=== PATIENT | female | born 2000 | race Caucasian/White ===

== ENCOUNTER 2022-11-28 10:08 | Outpatient (CLI) | payer OTHER, SELFPAY ==
[2022-11-28 10:29] VITALS: BP 108/65; PULSE 63; TEMP 36.2
[2022-11-28 10:46] VITALS: BMI 24.3
[2022-11-28 11:10] LABS: Bacteria 0 SEEN /hpf (None Seen); Mucous, Urine 0 SEEN /hpf (<or=2+); Red Blood Cells-Urine 0 SEEN /hpf (0-5); White Blood Cells 0 SEEN /hpf (0-5)
[2022-11-28 11:12] LABS: Color, Urine Yellow (Yellow); Glucose, Dipstick Normal (Normal); Ketone-Dipstick Negative (Negative); Leukocyte Esterase-Dipstick 25 /ul (Negative); Nitrite-Dipstick Negative (Negative); Occult Blood-Urine Negative /ul (Negative); Protein-Dipstick Negative (Negative); Urine Bilirubin Dipstick Negative (Negative); Urine Clarity Clear (Clear); Urine Urobilinogen Normal (Normal)
[2022-11-28 11:42] LABS: Squamous Epithelial Cells - UA 0-5 SEEN /hpf (5-10)
== END 2022-11-28 11:05 | disposition home or self-care (01) ==
LOC: WPPAT 10:23 → WP 10:25
PROVIDERS: Visit Provider Obstetrics & Gynecology
DX: Z00.00 Encounter for general adult medical examination without abnormal findings (principal)
CPT/HCPCS: 59050; 81001; 99221; G0378

== ENCOUNTER 2022-11-28 11:13 | Emergency (ER) | payer MEDICAID, SELFPAY ==
[2022-11-28 11:14] VITALS: BP 107/68; PULSE 65; RESP 18; TEMP 35.7; O2SAT 100; BMI 24.3
--- NOTE | 2022-11-28 11:28 | EDS_ITS ---
HPI HPI - GI History of Present Illness Chief Complaint: Abd Pain Detail of Chief Complaint: Burning abdominal pain Informant: patient Narrative Narrative: Patient presents to the emergency department complaint of burning abdominal pain that started early this morning. Patient states it feels like severe heartburn. She has not taken anything for it. She was initially seen in OB and was sent down to the ER once it was assessed that patient was not in labor. Patient has had some nausea but no vomiting. She denies fever chills or sweats. She denies vaginal bleeding. She denies dysuria. PFSH PFSH Home Medications vits no.130-ferrous fum 27 mg iron-folic acid 800 mcg tablet ( Vitamin) 1 tab PO DAILY 11/28/22 [History Last Taken 11/28/22 08:00 1 TAB] Allergy/AdvReac Type Severity Reaction Status Date / Time No Known Allergies Allergy Verified 11/28/22 11:14 Social History Smoking Status: Former smoker ROS ROS ED Review of Systems ROS Unobtainable: other Constitutional Constitutional ED: Reports lethargy; Denies chills, fever(s), sweats or weight loss Eyes Eyes: Denies blurry vision, change in vision or diplopia ENT ENT ED: Denies rhinorrhea or sore throat Cardiovascular Cardiovascular: Denies chest pain, orthopnea or racing heartbeat Respiratory/Chest Respiratory/Chest: Denies cough, dyspnea, dyspnea on exertion, orthopnea or sputum Gastrointestinal Gastrointestinal: Reports abdominal pain; Denies diarrhea, nausea or vomiting Genitourinary Genitourinary ED: Denies dysuria, hematuria or urinary frequency Musculoskeletal Musculoskeletal: Denies arthralgias, back pain, myalgias or neck pain Integumentary Denies abscess, Abrasions or rash Neurologic Neurologic: Denies headache(s) or weakness Psychiatric Psychiatric: Denies anxiety, depression or suicidal thoughts Endocrine Endocrinology: Denies polydipsia, polyphagia or polyuria Hematologic/Lymphatic Hematologic/Lymphatic: Denies easy bleeding, easy bruising or lymphadenopathy Allergic/Immunologic Allergic/Immunologic ED: Denies mouth swelling, tongue swelling or urticaria EXAM Physical Exam Const Vital Signs: 11/28/22 11:14 Temperature 96.2 F L Temperature Source Temporal Pulse Rate 65 Respiratory Rate 18 Blood Pressure 107/68 Blood Pressure Mean 81 Pulse Ox 100 Oxygen Delivery Method Room Air Positive well nourished and well developed General Appearance ED: well developed and NAD HEENT Reports TM's clear and moist mucous membranes normocephalic and atraumatic; Negative for trauma or tenderness Tympanic Membrane ED: Yes TM's clear Eyes PERRL and EOMs intact bilaterally General Eye ED: Negative for pale conjunctiva or scleral icterus Neck no lymphadenopathy, supple and no JVD General: Negative for tenderness Chest Wall inspection of chest normal and palpation of chest normal Chest: Negative for tenderness Resp normal respiratory effort and clear to auscultation bilaterally Effort and Inspection: Negative for respiratory distress or pain with movement Auscultation: Negative for rhonchi, wheezes or diminished lung sounds Cardio regular rate, regular rhythm, S1 normal heart sound, S2 normal heart sound and no murmurs Peripheral Pulses: pulses 2+ throughout GI normal to inspection, nondistended, normoactive bowel sounds, soft to palpation, non-distended and no masses GI Narrative: Mild tenderness over the right upper quadrant and epigastric region. There is no rebound, rigidity, or peritoneal signs. No mass palpated. Back/Spine no CVA tenderness and no thoracic nor lumbar tenderness Extremity normal to inspection General Extremety ED: Negative for edema General Extremity: Negative for edema Neuro oriented x3, CN's II-XII intact bilaterally, no sensory deficits noted and gait normal Sensorium / Orientation: awake, alert, oriented to person, oriented to place and oriented to time Motor Exam: strength 5/5 throughout and strength abnormal Psych mental status grossly normal Skin no rashes or lesions noted and no wounds MDM MDM MDM Narrative Medical decision making narrative: Patient presents with a burning upper abdomen pain in . She was seen by OB initially before being seen in the emergency department. Patient states that she has had heartburn in the past but did not take anything for it this time around. Patient does state that she does eat a lot of spicy food and puts Tabasco on everything. Patient denies any lower abdomen pain. She denies urinary symptoms. In the differential would be GERD versus gallbladder disease versus pancreatitis. Her abdominal exam is relatively benign. IV line established. CBC with differential white count 7.1 with hemoglobin of 10 and platelet count of 199. Chemistries unremarkable. LFTs were normal. Lipase was normal. Urinalysis sent by OB was negative for infection. I did give patient a GI cocktail and she did have some improvement in her discomfort and currently rates the burning may be a 4 out of 10. Patient will be discharged to home and will be given referral to [employer] on-call for no doc. She would like to just try to stick to Tums for the time being and manage her diet as she is advised to avoid spicy greasy foods as well as acidic foods. Patient vies return if worsening pain, fever, vomiting, or condition worsening way. I do not feel any imaging is indicated at this time as she has normal labs and a benign exam. Lab Data Attestation: I reviewed the patient's lab results. Labs: Laboratory Results - last 24 hr 11/28/22 11:30 WBC 7.1 RBC 3.43 L Hgb 10.2 L Hct 30.3 L MCV 88.3 MCH 29.7 MCHC 33.7 RDW Std Deviation 44.6 H RDW Coeff of Geoff 13.8 Plt Count 199 MPV 10.6 Immature Gran % (Auto) 0.300 Neut % (Auto) 74.3 H Lymph % (Auto) 18.3 L [place] % (Auto) 5.2 Eos % (Auto) 1.5 Baso % (Auto) 0.4 Absolute Neuts (auto) 5.3 Absolute Lymphs (auto) 1.30 Nucleated RBC % 0 Sodium 141 Potassium 4.3 Chloride 107 Carbon Dioxide 25.0 Anion Gap 9 BUN 9 Creatinine 0.43 L Estim Creat Clear Calc 196.18 Est GFR (MDRD) Af Amer 230 Est GFR (MDRD) Non-Af 190 BUN/Creatinine Ratio 20.8 H Glucose 84 Calcium 8.3 L Total Bilirubin 0.30 AST 11 L ALT 19 Alkaline Phosphatase 51 Total Protein 6.1 L Albumin 2.8 L Globulin 3.3 Albumin/Globulin Ratio 0.8 L Lipase 15 Discharge Plan Triage Chief Complaint: Abd Pain ED Provider: Huang Boyd Dx/Rx/DC Orders Clinical Impression: GERD (gastroesophageal reflux disease) Instructions: ED GERD (Adult) Prescriptions: No Action Vitamin 27 mg iron- 800 mcg tablet 1 tab PO DAILY Primary Care Provider: Care Physician,Razia Primary Referrals: Augusto Mcfarlane MD [Med Staff - Active Staff] - 5-7 Days NOT,DEFINED [Non-Staff] - Disposition Disposition: Home, Self Care Discharge Date/Time: 11/28/22 12:31
[2022-11-28] MEDS: Mag Hydrox/Al Hydrox/Simeth 30 ML UDC PO (11:34)
[2022-11-28 11:45] LABS: Absolute Neutrophil Count 5.3 X10^3/uL (2.0-7.7); Basophil# 0.03 X10^3/uL; Basophil% 0.4 % (0-1); Eosinophil# 0.11 X10^3/uL; Eosinophils% 1.5 % (0-5); Hematocrit 30.3 % (37-47); Hemoglobin 10.2 g/dL (12.0-15.0); Lymphocyte % 18.3 % (19-41); Mean Corp Hgb Conc 33.7 g/dL (32-36); Mean Corpuscular Hgb 29.7 pg (27.0-32.0); Mean Corpuscular Volume 88.3 fL (81-99); Mean Platelet Vol. 10.6 fl (6.2-12.0); Monocyte# 0.37 X10^3/uL; Monocyte% 5.2 % (0-10); NRBC Flagged by Analyzer 0 % (0-5); Neutrophil # 5.27 X10^3/uL (2.7-7.7); Neutrophil % 74.3 % (47-70); Platelet Count 199 K/mm3 (150-450); RBC Distribution Width CV 13.8 % (11.6-14.6); RBC Distribution Width SD 44.6 fl (35.1-43.9); Red Blood Count 3.43 M/mm3 (4.2-5.4); White Blood Count 7.1 K/mm3 (4.4-11.0)
[2022-11-28 11:55] LABS: ALB/GLOB Ratio 0.8 RATIO (0.9-2.4); AST(SGOT) 11 U/L (15-37); Alanine Aminotransfer ALT/SGPT 19 U/L (13-56); Albumin, Serum 2.8 g/dL (3.2-5.0); Alkaline Phosphatase 51 U/L (45-117); Anion Gap 9 (5-15); BUN 9 mg/dL (7-18); BUN/Creat Ratio 20.8 RATIO (10-20); Calcium,Total 8.3 mg/dL (8.5-10.1); Chloride 107 mmol/L (98-107); Creatinine, Serum 0.43 mg/dL (0.55-1.02); EST Glomerular Filtration Rate 190 mL/min (>60); Est Glom Filt Rate - Afr Amer 230 mL/min (>60); Estimated Creatinine Clearance 196.18 ml/min; Globulin 3.3 g/dL (2.2-4.2); Glucose 84 mg/dL (74-106); Lipase 15 U/L (13-75); Potassium 4.3 mmol/L (3.5-5.1); Protein, Total 6.1 g/dL (6.4-8.2); Sodium Level 141 mmol/L (136-145)
== END 2022-11-28 12:31 | disposition home or self-care (01) ==
PROVIDERS: Emergency Provider Emergency Medicine; Visit Provider Emergency Medicine
DX: O99.619 Diseases of the digestive system complicating pregnancy, unspecified trimester (principal); K21.9 Gastro-esophageal reflux disease without esophagitis; Z87.891 Personal history of nicotine dependence
CPT/HCPCS: 59050; 80053; 81001; 83690; 85025; 99221; 99282; G0378

== ENCOUNTER 2022-12-30 13:40 | Outpatient (CLI) | payer OTHER, SELFPAY ==
[2022-12-30 13:52] VITALS: TEMP 36.6
[2022-12-30 13:54] VITALS: BP 116/68; PULSE 90
[2022-12-30 14:23] VITALS: BMI 26.9
[2022-12-30 15:28] LABS: Absolute Lymphocyte Count 1.63 X10^3/uL (0.83-4.51); Absolute Neutrophil Count 6.9 X10^3/uL (2.0-7.7); Basophil# 0.06 X10^3/uL; Basophil% 0.6 % (0-1); Eosinophil# 0.11 X10^3/uL; Eosinophils% 1.2 % (0-5); Hematocrit 30.1 % (37-47); Hemoglobin 9.6 g/dL (12.0-15.0); Lymphocyte # 1.63 X10^3/ul (0.83-4.51); Lymphocyte % 17.6 % (19-41); Mean Corp Hgb Conc 31.9 g/dL (32-36); Mean Corpuscular Hgb 28.1 pg (27.0-32.0); Mean Platelet Vol. 10.6 fl (6.2-12.0); Monocyte# 0.46 X10^3/uL; NRBC Flagged by Analyzer 0 % (0-5); Neutrophil # 6.93 X10^3/uL (2.7-7.7); Neutrophil % 74.8 % (47-70); Platelet Count 264 K/mm3 (150-450); RBC Distribution Width SD 41.7 fl (35.1-43.9); Red Blood Count 3.42 M/mm3 (4.2-5.4); White Blood Count 9.3 K/mm3 (4.4-11.0)
[2022-12-30 15:37] VITALS: BP 121/57; PULSE 77
[2022-12-30] MEDS: Lactated Ringers 1,000 ML 999 ML IV (15:41)
[2022-12-30] MEDS: Betamethasone/Betamethasone 30 MG/5 ML Vial 12 MG IM (15:42)
[2022-12-30 15:50] LABS: Fibrinogen 369 mg/dl (203-444)
[2022-12-30] MEDS: Lactated Ringers 1,000 ML 150 ML IV (16:23)
--- NOTE | 2022-12-30 16:53 | OB.TRI.NOTE ---
HPI - General HPI Narrative TIKI ZAVALETA, is a 22 F who presents as patient of [facility] presents with bleeding x 2 at 28w6d, fell at work hit her side and has had cramping since, cervix closed. no clots but egg sized blood on her pad. she has felt good fm no regular ctx. discussed with MFM they recommend transport and steroids. cbc and fibrinogen done. PFSH PFSH Home Medications vits no.130-ferrous fum 27 mg iron-folic acid 800 mcg tablet ( Vitamin) 1 tab PO DAILY 11/28/22 [History Last Taken 11/28/22 08:00 1 TAB] Allergy/AdvReac Type Severity Reaction Status Date / Time No Known Allergies Allergy Verified 12/30/22 14:44 Social History Smoking Status: Former smoker ROS Constitutional Constitutional: Reports systems reviewed and no addt'l complaints, except as documented and as per HPI ENT HEENT: Reports systems reviewed and no addt'l complaints, except as documented Cardiovascular Cardiovascular: Reports systems reviewed and no addt'l complaints, except as documented Respiratory/Chest Respiratory/Chest: Reports systems reviewed and no addt'l complaints, except as documented Gastrointestinal Gastrointestinal: Reports as per HPI Genitourinary Genitourinary: Reports as per HPI Musculoskeletal Musculoskeletal: Reports systems reviewed and no addt'l complaints, except as documented Integumentary Integumentary: Reports systems reviewed and no addt'l complaints, except as documented Neurologic Neurologic: Reports systems reviewed and no addt'l complaints, except as documented Physical Exam Const alert, oriented x3 and no apparent distress HEENT Head and Scalp: normocephalic and atraumatic Neck full ROM and no lymphadenopathy Chest inspection of chest normal Resp normal respiratory effort GI GI Narrative: gravid, abdomen nontender, AGA Manual OB Exam: dilated, effaced and station NST FHR Rate Baby A Baseline: 140 Variability:: Moderate Accelerations:: 15 x 15 Decelerations:: None NST Reactive:: Yes FHR Category:: Category I Uterine Activity:: no regular Assessment & Plan (1) Vaginal bleeding during : COMMENT: [facility] MFM patient, seen 12/30 given celestone, transported (2) heart defect: PLAN: Plan cbc fibrinogen celestone given, reviewed with Dr Liz, transport to [facility] for monitoring Charges/Coding Multi Select Codes Visit Charges Office Visit/Consults: 63538 OV L3 New Urinary/Genital Urinary/Genital CPT Codes: 69858-42 non-stress test Interp
== END 2022-12-30 16:50 | disposition short-term general hospital (02) ==
LOC: WPOUT 13:46 → WP 13:47
PROVIDERS: Referring Provider Obstetrics & Gynecology; Visit Provider Obstetrics & Gynecology
DX: O46.93 Antepartum hemorrhage, unspecified, third trimester (principal); O36.8330 Maternal care for abnormalities of the fetal heart rate or rhythm, third trimester, not applicable or unspecified; Z3A.28 28 weeks gestation of pregnancy; Z87.891 Personal history of nicotine dependence
CPT/HCPCS: 96372; 96360; 36415; 59025; 59050; 85025; 85384; 99221; J7120; G0378; J0702

== ENCOUNTER 2023-03-01 20:03 | Outpatient (CLI) | payer MEDICAID, SELFPAY ==
--- OUTSIDE RECORDS SUMMARY | 2023-03-01 20:06 | XMS RPT_ITS | CCD ---
Author Name Unknown Address [address] [place] [address] Organization [facility] Care Team Providers Care [employer] Name Role Phone Unavailable Primary Care Provider UnavailGeneva Weaver Primary Care Provider Unavailable Primary Care Provider JAVON Page Attending Unavailable JAVON LAKHANI Admitting Unavailable REFERRED, SELF Referring Unavailable NO PRIMARY CARE, Primary Care Unavailable SOM ABBOTT Attending Unavailable REFERRED, SELF Referring Unavailable ESVIN CUELLAR Attending Unavailable JOSHUA POPENIFER Elkin Primary Care Unavailable NIKO GENEVA L Referring Unavailable NIKOJOSHUAGENEVA L Primary Care Unavailable GENEVA POPE L Attending Unavailable REFERRED, SELF Referring Unavailable NIKO, GENEVA L Primary Care Unavailable NIKO GENEVA L Attending Unavailable NIKO, GENEVA L Referring Unavailable NIKO, GENEVA L Primary Care Unavailable NIRMALA TERESA Attending Unavailable Medications Current Medications Medication Drug Class(es) Dates Sig (Normalized) Sig (Original) MV-Min-Fe Fum-FA-DHA ( 1 PO) (1 source) MV-Min- Fe Fum-FA-DHA ( 1 PO) Take by mouth. 0 Active Vit-Fe Fumarate-FA ( VITAMINS) 28-0.8 MG TABS (1 source) Start: 12-29-2022 End: 01-28-2023 take 1 tablet by mouth once daily Vit-Fe Fumarate-FA ( VITAMINS) 28-0.8 MG TABS Take 1 Tablet by mouth daily for 30 days 30 Tablet 11 12/29/2022 01/28/2023 Active Completed/Discontinued Medications Medication Drug Class(es) Dates Sig (Normalized) Sig (Original) acetaminophen 325 mg oral tablet (1 source) Start: 12-30-2022 End: 12-31-2022 take 1 tablet by mouth every four hours as needed for pain acetaminophen (Tylenol) tablet 650 mg betamethasone 3 mg/ml / betamethasone acetate 3 mg/ml injectable suspension (1 source) Corticosteroid Start: 12-31-2022 End: 12-31-2022 betamethasone acetate-betamethaso ne sodium phosphate (Celestone) injection 12 mg ferrous sulfate 325 mg oral tablet (2 sources) Start: 12-30-2022 End: 12-31-2022 ferrous sulfate tablet 325 mg Problems Problem Classification Problem Date Documented Da te Episodic/Chronic Other complications of (2 sources) High risk ; Translations: [Supervision of other high risk pregnancies, third trimester] Onset: 12-29-2022 12-29-2022 Episodic Other complications of (1 source) Late entry into care; Translations: [Supervision of with insufficient care, unspecified trimester] Onset: 12-29-2022 12-29-2022 Episodic Other female genital disorders (2 sources) Vaginal bleeding; Translations: [Abnormal uterine and vaginal bleeding, unspecified] Onset: 12-30-2022 12-30-2022 Chronic Other female genital disorders (2 sources) Abnormal uterine and vaginal bleeding, unspecified; Translations: [Abnormal uterine and vaginal bleeding, unspecified] Onset: 12-30-2022 Chronic Other and delivery including normal (1 source) Normal ; Translations: [Encounter for supervision of other normal , second trimester] Episodic Results Test Name Value Interpretation Reference Range Facil ity Vital Signs Date Time Vital Sign Value Performing Clinician Lyubov valadez 12-31-2022 12:04-0500 Body temperature 97.81 [degF] Javon Lakhani DO Work Phone: [facility] 12-31-2022 12:04-0500 Diastolic blood pressure 73 mm[Hg] Javon Lesvia DO Work Phone: [facility] 12-31-2022 12:04-0500 Heart rate 99 /min Javon Lesvia DO Work Phone: [facility] 12-31-2022 12:04-0500 Respiratory rate 16 /min Javon Lesvia [place] Work Phone: [facility] 12-31-2022 12:04-0500 SaO2% (BldA) [Mass fraction] 98 % Javon Lakhani DO Work Phone: [facility] 12-31-2022 12:04-0500 Systolic blood pressure 122 mm[Hg] Javon Lakhani DO Work Phone: [facility] 12-30-2022 18:17-0500 Body height 167.6 cm Javon Lakhani DO Work Phone: [facility] 12-30-2022 18:17-0500 Body mass index (BMI) [Ratio] 26.79 kg/m2 Javon Lakhani DO Work Phone: [facility] 12-30-2022 18:17-0500 Body weight 75.3 kg Javon Lakhani DO Work Phone: [facility] Encounters Encounter Date Encounter Type Care Provider Facility Start: 01-10-2023 End: 01-10-2023 ambulatory [facility] Start: 12-30-2022 End: 12-31-2022 Evaluation and management of inpatient JAVNO LAKHANI [facility] Start: 12-30-2022 End: 12-31-2022 Evaluation and management of inpatient Javon Lakhani DO Work Phone: [facility] Start: 12-29-2022 End: 12-30-2022 ambulatory [facility] Start: 12-29-2022 End: 12-29-2022 ambulatory SELF REFERRED [facility] Start: 12-29-2022 End: 12-29-2022 Subsequent hospital visit by physician Geneva Pope [employer] Work Phone: [facility] Procedures Date Procedure Procedure Detail Performing Clinician Start: 12-31-2022 Iadna chlamydia trachomatis amplified probe tq Catia Vo DO Work Phone: Start: 12-31-2022 Us preg uterus real time w/image dcmtn transvag Lissette Cruz DO Work Phone: Start: 11-16-2023 Antibody screen JAVON LAKHANI Plan of Treatment Date Care Activity Detail Author Start: 2058 RSV Immunization age d 60 or older (1 - 1-dose 60+ series) RSV Immunization aged 60 or older (1 - 1-dose 60+ series) [facility] Start: 2048 Zoster Vaccines (1 of 2) Zoster Vacc anay (1 of 2) [facility] Start: 02-02-2023 End: 02-02-2023 Patient encounter procedure 02/02/2023 11:30 AM EST Office Visit [facility] [address] [place], [place] [id number] Esvin Cuellar MD [address] [facility] [address] [place], [place] [id number] [phone] Josué Vázquez DO [address] [facility] [address] [place], [place] [id number] [facility] Start: 01-24-2023 End: 01-24-2023 Patient encounter procedure 01/24/2023 1:30 PM EST Office Visit [facility] [address], [address] [address] Nirmala Teresa [place] [address] [facility] Start: 01-24-2023 End: 01-24-2023 Professional / ancillary services management 01/24/2023 1:00 PM EST Ancillary Procedure Visit [facility] [address] [place] [address] [facility] Start: 01-10-2023 End: 01-10-2023 Patient encounter procedure 01/10/2023 10:00 AM EST Office Visit [facility] [address], [address] [place] [address] Nirmala Teresa [place] [address] [facility] Start: 10-15-2022 FLU (#1) FLU (#1) [facility] Start: 2019 Microscopic observat ion [Identifier] in Cervix by Cyto stain Pap Smear [facility] Start: 2019 Screening for malign ant neoplasm of cervix Pap Smear [facility] Start: 2017 DTaP/Tdap/Td Vaccine s (1 - Tdap) DTaP/Tdap/Td Vaccines (1 - Tdap) [facility] Start: 2016 Hepatitis C screening Hepatitis C Sc reening [facility] Start: 2014 MenB (1 of 2 - MenB 2-Dose Series Bexsero) MenB (1 of 2 - MenB 2-Dose Series Bexsero) [facility] Start: 2010 Depression Screening Depression Scre ening [facility] Start: 2009 HPV (1 - 2-dose series) HPV (1 - 2-d ose series) [facility] Start: 2009 HPV Vaccines (1 - 2- dose series) HPV Vaccines (1 - 2-dose series) [facility] Start: 2005 Tetanus Diphtheria a nd Pertussis Vaccines (1 - Tdap) Tetanus Diphtheria and Pertussis Vaccines (1 - Tdap) [facility] Start: 1999 MMR (1 of 1 - Standa rd series) MMR (1 of 1 - Standard series) [facility] Start: 1999 MMR Vaccines (1 of 1 - Standard series) MMR Vaccines (1 of 1 - Standard series) [facility] Start: 1999 Varicella (1 of 2 - 2-dose childhood series) Varicella (1 of 2 - 2-dose childhood series) [facility] Start: 1999 Varicella vaccination Varicell a Vaccines (1 of 2 - 2-dose childhood series) [facility] Start: 1998 COVID-19 (#1) COVID-19 (#1) [facility] Start: 1998 COVID-19 Vaccine (#1) COVID-19 Vacci ne (#1) [facility] Start: 1998 Hepatitis B (1 of 3 - 3-dose series) Hepatitis B (1 of 3 - 3-dose series) [facility] Start: 1998 Hepatitis B Vaccines (1 of 3 - 3-dose series) Hepatitis B Vaccines (1 of 3 - 3-dose series) [facility] Start: 1998 HIV screening HIV Screening [facility] End: 12-31-2022 Bacteria identified in Urine by Culture [facility] Work Phone: Immunizations Immunization Date Immunization Notes Care Provider Fa rositaty 12-31-2022 Influenza, injectabl e, Madin Melissa Canine Kidney, preservative free, quadrivalent Javon Lesvia DO Work Phone: [facility] Payers Date Payer Category Payer Unknown [id number] 1998 Unknown [id number] 1998 Unknown [id number] 1998 Unknown [id number] 1998 Unknown [id number] Unknown SANDRA SANDRA/FHN [id number] [phone] Effective for all dates [phone] [address] [place] [address] [id number] Unknown [id number] Social History Date Type Detail Facility Tobacco smoking status CTIS Tobacco smoking consumption unknown [facility] Start: 2000 Sex Assigned At Not on file [facility] Start: 12-29-2022 Tobacco smoking status CTIS Ex-smoker [facility] End: 02-14-2017 History of tobacco use Current smoker [facility] End: 02-14-2017 History of tobacco use Cigarette Smoker [facility] History of tobacco use Tobacco Use Types Packs/Day Years Used Date Smoking Tobacco: Former Cigarettes Quit: 2018 Vaping Smokeless Tobacco: Never [facility] Start: 12-29-2022 End: 12-30-2022 Tobacco use and exposure Smokeless tobacco non-user [facility] Start: 12-29-2022 Alcohol intake Ex-drinker (finding) [facility] Start: 12-29-2022 End: 12-30-2022 History of Social function [facility] Start: 12-29-2022 End: 12-30-2022 Tobacco use panel [facility] Start: 12-29-2022 Tobacco Comment Patient is vap ing every day [facility] Start: 12-29-2022 Alcohol Comment not during [facility] Start: 06-25-2022 [facility] Start: 12-30-2022 Tobacco smoking status NHIS Never smoked tobacco [facility] Start: 12-30-2022 Alcohol intake Lifetime non-d wan (finding) [facility] Within the last year , have you been afraid of your partner or ex-partner? No [facility] Clinical Notes 07-21-2021 to 12-31-2022 Radha Aguirre RN - 12/31/2022 4:00 PM ESTRadha Aguirre RN - 12/31/2022 4:00 PM ESTDischarge Sarah Cruz DO - 12/31/2022 6:37 AM EST Note Date & Type Note Facility 12-31-2022 Nurse Note Patient given discharge instructions with standard labor precautions. Pt states no questions or concerns, left ambulatory with spouse. [facility] 12-31-2022 Nurse Note Patient given discharge instructions with standard labor precautions. Pt states no questions or concerns, left ambulatory with spouse. documented in this encounter [facility] 12-31-2022 Hospital Discharg e instructions Radha Aguirre RN - 12/31/2022 3:50 PM EST Call your DrFollow up appointment with your doctor/poultry buyer - Keep next scheduled appointment Activity - Normal Activity Call your doctor/poultry buyer if you have: - leaking fluid - vaginal bleeding - regular contractions: More than 6 contractions in one hour - decreased movement - worsening abdominal (belly) pain - headache, blurry vision, increased swelling, upper abdominal pain If you are going home with contractions that are uncomfortable/painful- we recommend these coping strategies: rhythmic breathing, hydrotherapy, imagery or visualization, gentle massage, walking and changing your position. documented in this encounter [facility] 12-31-2022 Note Attestation signed by Guillermina Liz MD at 01/01/2023 11:16 AM [facility] attending attestation: I reviewed and agree with the care provided by the resident during or immediately following the visit including the patient's medical history, the resident's findings in the physical exam, patient's diagnosis and treatment plan. I did not see this patient and she left against medical advice after completion of BMZ Department of Obstetrics and Gynecology [facility] Discharge Summary Admission on 12/30/2022 6:01 PM Elyse Petty is a 22 y.o. at 28w6d who was admitted for monitoring and observation after a fall. She received her second dose of BMZ, 12/30-12/31. Her workup revealed no significant findings. Placenta was noted to be anterior. Pt was not lawrence and had no bleeding since. She was recommended to stay for observation for 24 hours from her last steroid injection however patient elected to leave A after her second injection. A paperwork signed. Meds: Medication List CONTINUE taking these medications 1 PO Discharge to: Home Discharge date: 12/31/22 Discharge Dx: vaginal bleeding, maternal trauma Follow up appointment with your doctor/poultry buyer - Keep next scheduled appointment Activity - Normal Activity Call your doctor/poultry buyer if you have: - leaking fluid - vaginal bleeding - regular contractions: More than 6 contractions in one hour - decreased movement - worsening abdominal (belly) pain - headache, blurry vision, increased swelling, upper abdominal pain Jasmin Aldana DO on 12/31/2022 at 1:32 PM [facility] 12-31-2022 History of Presen t illness Narrative Images from the original note were not included. [facility] Service Resident Progress Note 12/31/2022 6:37 AM 12/30/2022 Hospital Day: 2 Elyse Petty, 22 y.o. 29w0d Patient has been seen and examined, she was sleeping comfortably and was not disturbed. Vitals: 12/30/22 1817 12/30/22 2109 12/31/22 0133 BP: 113/69 (!) 116/58 (!) 123/59 Pulse: 79 70 81 Resp: 16 Temp: 36.4 C (97.6 F) 36.3 C (97.4 F) 36.6 C (97.9 F) TempSrc: Oral Temporal Temporal SpO2: 97% 97% Weight: 166 lb (75.3 kg) Height: 5' 6 (1.676 m) Reviewed from 0000 to 0630 on 12/31 FHT: 130, moderate variability Accels: present Decels: absent Contractions: none Physical Exam: Gen: NAD, patient sleeping comfortably Medications: Current Facility-Administered Medications Medication Dose Route Frequency Provider Last Rate Last Admin acetaminophen (Tylenol) tablet 650 mg 650 mg Oral q4h PRN Elena Mcnulty, betamethasone acetate-betamethasone sodium phosphate (Celestone) injection 12 mg 12 mg IntraMUSCular q24h Elena Mcnulty, DO ferrous sulfate tablet 325 mg 325 mg Oral Every other day Elena Mcnulty, DO 325 mg at 12/30/222132 influenza vac subunit quadrivalent (Flucelvax) injection 0.5 mL 0.5 mL IntraMUSCular Once Elena Mcnulty, DO ondansetron ODT (Zofran-ODT) disintegrating tablet 4 mg 4 mg Oral q8h PRN Elena Mcnulty, DO Or ondansetron (Zofran) injection 4 mg 4 mg IntraVENous q6h PRN Elena Rodríguezu, DO vitamin tablet 1 tablet Oral Daily Elena Mcnulty, DO 1 tablet at 12/30/222132 sodium chloride 0.9 % infusion 5-250 mL/hr IntraVENous PRN Elena Mcnulty, DO sodium chloride 0.9% (NS) flush 10 mL 10 mL IntraVENous 2 times per day Elena Mcnulty, DO 10 mL at 12/30/222132 sodium chloride 0.9% (NS) flush 10 mL 10 mL IntraVENous PRN Elena Rodríguezu, DO Assessment/Plan: Elyse Petty is a 22 y.o. female 29w0d Fall Vaginal Bleeding - Presenting after a fall on 12/29 while at work she had tripped over a pallet on the floor and tried to turn to fall on her back but fell on her left side on the palate and the floor. Patient states that after the fall she had generalized abdominal pain and when she had gone to the bathroom at work she noted decided to go home. Patient states while she was at home she had another episode of bleeding and then went to the hospital to be further evaluated. - Patient states that she had light spotting the morning of 12/30 and some lower back cramping. 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 as OB - Patient dated by LMP 06/11 IUP @ 29w0d - Dating by LMP 06/11 - Cephalic on 12/30 - Monitoring:CEFM - Diet:General - BMZ x1 on 12/30 Further plan pending d/w attending. LISSETTE CRUZ DO 12/31/2022, 6:37 AM Associated attestation - mAada Hogan DO - 12/31/2022 12:28 PM EST Hospital Care (Independent): I independently saw and evaluated the patient. I agree with the findings and plan of care as documented in the resident's note. 22 y.o. yo at 29w0d hospital day 1 with: Patient Active Problem List Diagnosis Vaginal bleeding S/P fall concerning for abruption. Bleeding now resolved. Abd gravid, NTTP, normal US results. Recommend completing BMZ course to reduce prematurity risks if her baby is boirn early. Continue inpt management at this time. Can decrease CFM to daily NST. She will report any vaginal bleeding or contractions which would need prompt evaluation. Chart review and preparation: 15 minutes. Face to face: 18 minutes. Documentation and care coordination: 12 minutes. Total time spent on patient care today: 45 minutes. documented in this encounter [facility] 12-31-2022 Note Formatting of this n ote might be different from the original. Date: 12/31/2022 Name: Elyse Petty : 2000 [facility] Information- [place] Patient Information Primary Caregiver: Self Accompanied by/Relationship: S/O;Family Marital Status: Single Support System: SO/Family Islam/Cultural Factors: none Activities of Daily Living Communication: See demographics Living Arrangements Current Residence: Private residence Lives With: S/O; Family Support System: S/O; Family Income Information Income Source: Employed Financial Resource Strain How hard is it for you to pay for the very basics like food, housing, medical care and heating? N/A Housing Stability In the last 12 months, was there a time when you did not have a steady place to sleep or slept in a retirement (including now)? No Transportation Needs Has the lack of Transportation kept you from medical appointments? No In the past 12 months, has the lack of transportation kept you from meetings, work, or from getting things needed for daily living? No Food Insecurity Within the past 12 months, have you worried that your food would run out before you got the money to buy more? No Stress Do you feel stress - tense, restless, nervous, or anxious, or unable to sleep at night because you mind is troubled all the time? Mood stable Referral To Financial Resources: N/A Community Resources: PNU folder given upon admission to PNU Unit Social Work: N/A CLP: N/A Medical Information 22 year old admitted for abdominal pain and vaginal bleeding after a fall. 4 Para 2. Transport from [facility] to care. Discharge Plan Home or Community Resources: PNU Admission folder given upon admission to unit Equipment: N/A Education Given: PNU admit folder and see Education Tab Additional Information: N/A Mental Health Services: N/A Developmental Delay: N/A Children's Services: N/A [facility] 12-31-2022 Miscellaneous Notes Formattin g of this note might be different from the original. Date: 12/31/2022 Name: Elyse Petty : 2000 [facility] Patient Information Primary Caregiver: Self Accompanied by/Relationship: S/O;Family Marital Status: Single Support System: SO/Family Islam/Cultural Factors: none Activities of Daily Living Communication: See demographics Living Arrangements Current Residence: Private residence Lives With: S/O; Family Support System: S/O; Family Income Information Income Source: Employed Financial Resource Strain How hard is it for you to pay for the very basics like food, housing, medical care and heating? N/A Housing Stability In the last 12 months, was there a time when you did not have a steady place to sleep or slept in a retirement (including now)? No Transportation Needs Has the lack of Transportation kept you from medical appointments? No In the past 12 months, has the lack of transportation kept you from meetings, work, or from getting things needed for daily living? No Food Insecurity Within the past 12 months, have you worried that your food would run out before you got the money to buy more? No Stress Do you feel stress - tense, restless, nervous, or anxious, or unable to sleep at night because you mind is troubled all the time? Mood stable Referral To Financial Resources: N/A Community Resources: PNU folder given upon admission to PNU Unit Social Work: N/A CLP: N/A Medical Information 22 year old admitted for abdominal pain and vaginal bleeding after a fall. 4 Para 2. Transport from [facility]. Late to care. Discharge Plan Home or Community Resources: PNU Admission folder given upon admission to unit Equipment: N/A Education Given: PNU admit folder and see Education Tab Additional Information: N/A Mental Health Services: N/A Developmental Delay: N/A Children's Services: N/A documented in this encounter [facility] 12-30-2022 Note Department of Matern al Medicine History and Physical CHIEF COMPLAINT: abdominal pain and vaginal bleeding HISTORY OF PRESENT ILLNESS: The patient is a 22 y.o. female at 28w6d presenting after a fall yesterday at work. Patient states that while she was at work she had tripped over a pallet on the floor and tried to turn to fall on her back but fell on her left side on the palate and the floor. Patient states that after the fall she had generalized abdominal pain and when she had gone to the bathroom at work she noted decided to go home. Patient states while she was at home she had another episode of bleeding and then went to the hospital to be further evaluated. Patient states that she had light spotting this morning and some lower back cramping. Patient denies any additional vaginal bleeding at this time. Patient endorses good movement. Patient also states that she was unaware of until about 2 or 3 months because she was having period like bleeding OB History 4 Para 2 Term AB 1 Living 2 SAB IAB Ectopic Multiple Live Births Patient presents with a chief complaint as above and is being admitted for vaginal bleeding Transport: Yes , from [facility] Prior Hospitalizations: No Estimated Due Date: Estimated Date of Delivery: 03/18/23 CARE: Complications: See Below PAST OB HISTORY: OB History 4 Para 2 Term AB 1 Living 2 SAB IAB Ectopic Multiple Live Births Detailed OB History G1 TSVD G2 TSVD G3 SAB G4 TSVD Past Medical History: History reviewed. No pertinent past medical history. Past Surgical History: History reviewed. No pertinent surgical history. Allergies: Patient has no known allergies. Social History: Social History Socioeconomic History Marital status: Not on file Spouse name: Not on file Number of children: Not on file Years of education: Not on file Highest education level: Not on file Occupational History Not on file Tobacco Use Smoking status: Never Smokeless tobacco: Never Vaping Use Vaping Use: Some days Substances: Flavoring Substance and Sexual Activity Alcohol use: Never Drug use: Never Sexual activity: Not on file Other Topics Concern Not on file Social History Narrative Not on file Social Determinants of Health Financial Resource Strain: Not on file Food Insecurity: Not on file Transportation Needs: Not on file Physical Activity: Not on file Stress: Not on file Social Connections: Not on file Intimate Partner Violence: Not At Risk (12/30/2022) Humiliation, Afraid, Rape, and Kick questionnaire Fear of Current or Ex-Partner: No Emotionally Abused: No Physically Abused: No Sexually Abused: No Housing Stability: Not on file Family History: No family history on file. Medications Prior to Admission: Medications Prior to Admission Medication Sig Dispense Refill Last Dose MV-Min-Fe Fum-FA-DHA ( 1 PO) Take by mouth. REVIEW OF SYSTEMS: Review of Systems Constitutional: Negative for chills and fever. Cardiovascular: Negative for chest pain. Gastrointestinal: Positive for abdominal pain. Negative for nausea and vomiting. Genitourinary: Positive for vaginal bleeding and vaginal discharge. Negative for pelvic pain and vaginal pain. Neurological: Negative for weakness. Labs: CBC: No results found for: WBC , RBC , HGB , HCT , MCV , MCH , MCHC , RDW , PLT , MPV , PT/INR: No results found for: PROTIME , INR , PTT: No results found for: APTT , PTT [APTT}, and Fibrinogen Level: No components found for: FIB PHYSICAL EXAM: Vitals: 12/30/22 1817 BP: 113/69 Pulse: 79 Resp: 16 Temp: 36.4 ?C (97.6 ?F) TempSrc: Oral Weight: 166 lb (75.3 kg) Height: 5' 6 (1.676 m) General appearance: awake, alert, cooperative, no apparent distress, and appears stated age Neurologic: Awake, alert, oriented to name, place and time. Lungs: No increased work of breathing, good air exchange Abdomen: Soft, non tender, gravid, consistent with her gestational age Sterile Speculum Exam: Membranes: Intact HSV Lesions: not applicable Cervix: Finger tip Contraction frequency: Irritability Fetus: EFW: 12/28 AC57% EFW 1329g, 2lbs 15oz 59% Presentation: Vertex by U/S NST: Reactive genetics: Hx of PTL: Celestone given previously: No ASSESSMENT AND PLAN: LABOR DELIVERY ??? SCD's ONLY (labor through ambulation) SCD's PLUS Prophylactic Anticoagulation until discharge SCD's PLUS Prophylactic Anticoagulation for 6 weeks SCD's PLUS Therapeutic Anticoagulation for 6 weeks Vaginal Delivery [] BMI ? 40 kg/m2 Delivery All patients Vaginal Delivery [] BMI ? 40 kg/m2 AND [] Antepartum hospitalization ? 72 hours within the past month Delivery 1 Major Risk Factor: [] BMI ? 35 kg/m2 [] Low Ris (more content not included)... [facility] 07-21-2021 Miscellaneous Notes Contact letter sent informing patient to contact office if she desires an appointment Patient returned message,returned patients call 3:47 pm Voicemail left 2:38 pm 5.24.22 Patient seen in ER, please offer ER follow up visit documented in this [facility] Supervision of other high risk pregnancies, third trimester documented in this encounter [facility] Diagnosis Vaginal bleeding- Primary Other specified noninflammatory disorder of vagina documented in this encounter [facility] Summary Purpose Family History No Family History Records FoundNo Family History Records FoundNo Family History Records Found Advance Directives No Advanced Directives Records FoundLatest Code Status on File Code Status Date Activated Date Inactivated Comments Full Code 12/30/2022 8:09 PM 12/31/2022 6:06 PM Additional Source Comments Source Comments (unrecognize d section and content) In the event this informatio n is protected by the Federal Confidentiality of Alcohol and Drug Abuse Patient Records regulations: The Federal rules restrict any use of the information to criminally investigate or prosecute any alcohol or drug abuse patient.[facility] event this information is protected by the Federal Confidentiality of Alcohol and Drug Abuse Patient Records regulations: The Federal rules restrict any use of the information to criminally investigate or prosecute any alcohol or drug abuse patient.[facility] Reason for Visit (unrecogniz ed section and content) Reason Comments Vaginal Bleeding - Fall INFORMATION SOURCE (unrecogn ized section and content) DATE CREATED AUTHOR AUTHOR'S ORGANIZ ATION 01/08/2023 [facility] DATE CREATED AUTHOR AUTHOR'S ORGANIZ ATION 02/11/2023 [facility] Care Teams (unrecognized sec tion and content) Scheduled Active and Recently Administ ered Medications (unrecognized section and content) PRN Medication Order 12/29/2022 12/30/2022 12/31/2022 acetaminophen (Tylenol) tablet 650 mg 650 mg, Oral, Every 4 hours PRN, mild pain (1-3), Fever GREATER than 100.5 F (38 C), Starting on Dayanna 12/30/22 at 2005, Maximum dose of acetaminophen is 4000 mg from all sources in 24 hours. ondansetron (Zofran) injection 4 mg(Linked Group 1) 4 mg, IntraVENous, Every 6 hours PRN, nausea, vomiting, Starting on Dayanna 12/30/22 at 2005, 1st Line. Give IV if patient is unable to take orally. If inadequate response within 60 minutes, proceed to next-line agent or contact provider if no further options ordered. ondansetron ODT (Zofran-ODT) disintegrating tablet 4 mg(Linked Group 1) 4 mg, Oral, Every 8 hours PRN, nausea, vomiting, Starting on Dayanna 12/30/22 at 2005, 1st Line. If inadequate response within 60 minutes, proceed to next-line agent or contact provider if no further options ordered. Patient should allow tablet to dissolve on tongue. Do not remove from blister pack until just before administering. sodium chloride 0.9 % infusion 5-250 mL/hr, IntraVENous, PRN, if patient receiving piggyback infusions and maintenance fluids are not ordered OR KVO fluids to protect IV site / prevent frequent line interruptions/ long duration, Starting on Dayanna 12/30/22 at 2005, For piggyback infusion, administer at same rate as piggyback for a total of 25 mL. Enter 25 mL into dose field and piggyback rate into rate field of order. If piggyback is infusing at a rate less than 100 mL/hr, enter 25 mL into dose field and 100 mL/hr into rate field of order. For KVO fluids, enter rate of 20 mL/hr or less into rate field of order. sodium chloride 0.9% (NS) flush 10 mL 10 mL, IntraVENous, PRN, line care, Starting on Dayanna 12/30/22 at 2005, After every IV line use Linked Groups Order Group 1: ondansetron ODT (Zofran-ODT) disintegrating tablet 4 mgJump to med 4 mg, Oral, Every 8 hours PRN, nausea, vomiting, Starting on Dayanna 12/30/22 at 2005, 1st Line. If inadequate response within 60 minutes, proceed to next-line agent or contact provider if no further options ordered. Patient should allow tablet to dissolve on tongue. Do not remove from blister pack until just before administering. Or ondansetron (Zofran) injection 4 mgJump to med 4 mg, IntraVENous, Every 6 hours PRN, nausea, vomiting, Starting on Dayanna 12/30/22 at 2005, 1st Line. Give IV if patient is unable to take orally. If inadequate response within 60 minutes, proceed to next-line agent or contact provider if no further options ordered. FOR RECORDS PERTAINING TO PATIENTS WHO ARE OR HAVE BEEN ENROLLED IN A CHEMICAL DEPENDENCY/SUBSTANCEABUSE PROGRAM, SOME INFORMATION MAY BE OMITTED. This clinical summary was aggregated from multiple sources. Caution should be exercised in using it in the provision of clinical care. This summary normalizes information from multiple sources, and as a consequence, information in this document may materially change the coding, format and clinical context of patient data. In addition, data may be omitted in some cases. CLINICAL DECISIONS SHOULD BE BASED ON THE PRIMARY CLINICAL RECORDS. [employer] [facility]. provides no warranty or guarantee of the accuracy or completeness of information in this document.
[2023-03-01 20:18] VITALS: PULSE 90; O2SAT 98
[2023-03-01 20:32] VITALS: BP 117/60; PULSE 75
[2023-03-01 20:42] VITALS: BMI 29.5
[2023-03-01] MEDS: Ondansetron ODT 4 MG Tablet PO (21:19)
--- NOTE | 2023-03-02 05:38 | OB.TRI.PN ---
Progress Notes Progress Note: , 37w4d. Presented to labor and delivery with complaints of back pain and nausea. Laboratory Studies: NST 145, moderate, accels, no decels, reactive Assessment & Plan (1) Back pain affecting : PLAN: Plan 1) Pain decreased after tylenol 2) Zofran for nausea 3) Follow up outpatient with provider if no improvement or continued nausea 4) D/C home
== END 2023-03-01 21:35 | disposition short-term general hospital (02) ==
LOC: WPOUT 20:04 → WP 20:05
PROVIDERS: Referring Provider Advanced Practice Midwife; Visit Provider Advanced Practice Midwife
DX: O46.93 Antepartum hemorrhage, unspecified, third trimester (principal); O36.8330 Maternal care for abnormalities of the fetal heart rate or rhythm, third trimester, not applicable or unspecified; Z3A.28 28 weeks gestation of pregnancy; Z87.891 Personal history of nicotine dependence
CPT/HCPCS: 59025; 59050; 99221; G0378

== ENCOUNTER 2023-03-03 21:34 | Inpatient (IN) | payer MEDICAID, SELFPAY ==
[2023-03-03] VITALS (11 sets, daily range): BP systolic 122–135; BP diastolic 67–83; PULSE 67–82; TEMP 36.7–37.5; O2SAT 99; BMI 28.6
--- OUTSIDE RECORDS SUMMARY | 2023-03-03 21:20 | XMS RPT_ITS | CCD ---
Author Name Unknown Address [address] [place] [address] Organization [facility] Care Team Providers Care Case Technician Name Role Phone Unavailable Primary Care Provider [...] 97.81 [degF] Javon Lakhani DO Work Phone: [employer] 12-31-2022 12:04-0500 Diastolic blood pressure 73 mm[Hg] Javon Lesvia DO Work Phone: [employer] 12-31-2022 12:04-0500 Heart rate 99 /min Javon Lesvia DO Work Phone: [employer] 12-31-2022 12:04-0500 Respiratory rate 16 /min Javon Lesvia [employer] Work Phone: [employer] 12-31-2022 12:04-0500 SaO2% (BldA) [Mass fraction] 98 % Javon Lakhani DO Work Phone: [employer] 12-31-2022 12:04-0500 Systolic blood pressure 122 mm[Hg] Javon Lakhani DO Work Phone: [employer] 12-30-2022 18:17-0500 Body height 167.6 cm Javon Lakhani DO Work Phone: [employer] 12-30-2022 18:17-0500 Body mass index (BMI) [Ratio] 26.79 kg/m2 Javon Lakhani DO Work Phone: [employer] 12-30-2022 18:17-0500 Body weight 75.3 kg Javon Lakhani DO Work Phone: [facility] [employer] Encounters Encounter Date Encounter Type Care Provider Facility Start: 01-10-2023 End: 01-10-[address] [facility] Start: 12-30-2022 End: 12-31-2022 Evaluation and management of inpatient JAVON LAKHANI [facility] Start: 12-30-2022 End: 12-31-2022 Evaluation and management of inpatient Javon Lakhani DO Work Phone: [facility] Start: 12-29-2022 End: 12-30-[address] 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, [place] [id number] Esvin Cuellar MD [address] [place], [place] [id number] [phone] Josué Vázquez DO [address] [facility] [address] [place], [place] [id number] [facility] Start: 01-24-2023 End: 01-24-2023 Patient encounter procedure 01/24/2023 1:30 PM EST Office Visit [facility] [address], [address] [address] Nirmala Teresa APRN-[employer] [place] [address] [facility] Start: 01-24-2023 End: 01-24-2023 Professional / ancillary services management 01/24/2023 1:00 PM EST Ancillary Procedure Visit [facility] [address] [place] [address] [facility] Start: 01-10-2023 End: 01-10-2023 Patient encounter procedure 01/10/2023 10:00 AM EST Office Visit [facility] [address] [place] [address] Nirmala Teresa APRN-[employer] [address] [facility] Start: 10-15-2022 FLU (#1) FLU (#1) [facility] Start: 2019 Microscopic observat ion [Identifier] in Cervix by Cyto stain Pap Smear [facility] Start: 2019 Screening for malign ant neoplasm of cervix Pap Smear [facility] Start: 2017 DTaP/Tdap/Td Vaccine s (1 - Tdap) DTaP/Tdap/Td Vaccines (1 - Tdap) [facility] Start: 2016 Hepatitis C screening Hepatitis C Sc reening [facility] Start: 2014 MenB (1 of 2 - MenB 2-Dose Series Bexsero) MenB (1 of 2 - MenB 2-Dose Series Bexsero) [facility] Start: 2010 Depression Screening Depression Scre ening [facility] Start: 2009 HPV (1 - 2-dose series) HPV (1 - 2-d ose series) [facility] Start: 2009 HPV Vaccines (1 - 2- dose series) HPV Vaccines (1 - 2-dose series) [facility] Start: 2005 Tetanus Diphtheria a nd Pertussis Vaccines (1 - Tdap) Tetanus Diphtheria and Pertussis Vaccines (1 - Tdap) [facility] Start: 1999 MMR (1 of 1 - Standa rd series) MMR (1 of 1 - Standard series) [facility] Start: 1999 MMR Vaccines (1 of 1 - Standard series) MMR Vaccines (1 of 1 - Standard series) [facility] Start: 1999 Varicella (1 of 2 - 2-dose childhood series) Varicella (1 of 2 - 2-dose childhood series) [facility] Start: 1999 Varicella vaccination Varicell a Vaccines (1 of 2 - 2-dose childhood series) [facility] Start: 1998 COVID-19 (#1) COVID-19 (#1) [facility] Start: 1998 COVID-19 Vaccine (#1) COVID-19 Vacci ne (#1) [facility] Start: 1998 Hepatitis B (1 of 3 - 3-dose series) Hepatitis B (1 of 3 - 3-dose series) [facility] Start: 1998 Hepatitis B Vaccines (1 of 3 - 3-dose series) Hepatitis B Vaccines (1 of 3 - 3-dose series) [facility] Start: 1998 HIV screening HIV Screening [facility] End: 12-31-2022 Bacteria identified in Urine by Culture [facility] Work Phone: Immunizations Immunization Date Immunization Notes Care Provider Fa rositaty 12-31-2022 Influenza, injectabl e, Madin Melissa Canine Kidney, preservative free, quadrivalent Javon Lesvia DO Work Phone: [facility] Payers Date Payer Category Payer Unknown [id number] 1998 Unknown [id number] 1998 Unknown [id number] 1998 Unknown [id number] 1998 Unknown [id number] Unknown SANDRA SANDRA/FHN [id number] [phone] Effective for all dates [phone] [address] [place] [address] [id number] Unknown [id number] Social History Date Type Detail Facility Tobacco smoking status DCIS Tobacco smoking consumption unknown [facility] Start: 1998 Sex Assigned At Not on file [facility] Start: 12-29-2022 Tobacco smoking status DCIS Ex-smoker [facility] End: 02-14-2017 History of tobacco use Current smoker [facility] End: 02-14-2017 History of tobacco use Cigarette Smoker [facility] History of tobacco use Tobacco Use Types Packs/Day Years Used Date Smoking Tobacco: Former Cigarettes Quit: 2018 Vaping Smokeless Tobacco: Never [facility] Start: 12-29-2022 End: 12-30-2022 Tobacco use and exposure Smokeless tobacco non-user [facility] Start: 12-29-2022 Alcohol intake Ex-drinker (finding) [facility] Start: 12-29-2022 End: 12-30-2022 History of Social function [facility] Start: 12-29-2022 End: 12-30-2022 Tobacco use panel [facility] Start: 12-29-2022 Tobacco Comment Patient is vap ing every day [facility] Start: 12-29-2022 Alcohol Comment not during [facility] Start: 06-25-2022 [facility] Start: 12-30-2022 Tobacco smoking status NHIS Never smoked tobacco [facility] Start: 12-30-2022 Alcohol intake Lifetime non-d wan (finding) [facility] Within the last year , have you been afraid of your partner or ex-partner? No [facility] Clinical Notes 07-21-2021 to 12-31-2022 Radha Aguirre RN - 12/31/2022 4:00 PM ESTRadha Aguirre RN - 12/31/2022 4:00 PM ESTDischarge Sarah Cruz DO - 12/31/2022 6:37 AM EST Note Date & Type Note Facility 12-31-2022 Nurse Note Patient given discharge instructions with standard labor precautions. Pt states no questions or concerns, left ambulatory with spouse. [facility] 12-31-2022 Nurse Note Patient given discharge instructions with standard labor precautions. Pt states no questions or concerns, left ambulatory with spouse. documented in this encounter [facility] 12-31-2022 Hospital Discharg e instructions Radha Aguirre RN - 12/31/2022 3:50 PM EST Call your DrFollow up appointment with your doctor/lime sludge mixer - Keep next scheduled appointment Activity - Normal Activity Call your doctor/lime sludge mixer if you have: - leaking fluid - [...] changing your position. documented in this encounter [facility] 12-31-2022 Note Attestation signed by Guillermina Liz [...] of [facility] Department of Obstetrics and Gynecology [facility] Discharge Summary Admission on 12/30/2022 [...] maternal trauma Follow up appointment with your doctor/lime sludge mixer - Keep next scheduled appointment Activity - Normal Activity Call your doctor/lime sludge mixer if you have: - leaking fluid - vaginal bleeding - regular contractions: More than 6 contractions in one hour - decreased movement - worsening abdominal (belly) pain - headache, blurry vision, increased swelling, upper abdominal pain Jasmin Aldana DO on 12/31/2022 at 1:32 PM [facility] 12-31-2022 History of Presen t illness [...] 4 mg 4 mg IntraVENous q6h PRN Eelna Rodríguezu, DO vitamin tablet 1 tablet Oral [...] months - Unable to get OB in [facility] as OB - Patient dated by LMP 06/11 IUP @ 29w0d - Dating by LMP 06/11 - Cephalic on 12/30 - Monitoring:CEFM - Diet:General - BMZ x1 on 12/30 Further plan pending d/w attending. LISSETTE CRUZ DO 12/31/2022, 6:37 AM Associated attestation - Amada Hogan DO - 12/31/2022 12:28 PM EST [...] today: 45 minutes. documented in this encounter [facility] 12-31-2022 Note Formatting of this n ote might be different from the original. Date: 12/31/2022 Name: Elyse Petty : 2000 [facility] Information- [place] Patient Information Primary Caregiver: Self Accompanied by/Relationship: S/O;Family Marital Status: Single Support System: SO/Family Presybeterian/Cultural Factors: none Activities of Daily Living Communication: [...] a fall. 4 Para 2. Transport from [facility] to care. Discharge Plan Home or Community Resources: PNU Admission folder given upon admission to unit Equipment: N/A Education Given: PNU admit folder and see Education Tab Additional Information: N/A Mental Health Services: N/A Developmental Delay: N/A Children's Services: N/A [facility] 12-31-2022 Miscellaneous Notes Formattin g of this note might be different from the original. Date: 12/31/2022 Name: Elyse Petty : 2000 [facility] Patient Information Primary Caregiver: Self Accompanied by/Relationship: S/O;Family Marital Status: Single Support System: SO/Family Presybeterian/Cultural Factors: none Activities of Daily Living Communication: [...] a fall. 4 Para 2. Transport from [facility]. Late to care. Discharge Plan Home or Community Resources: PNU Admission folder given upon admission to unit Equipment: N/A Education Given: PNU admit folder and see Education Tab Additional Information: N/A Mental Health Services: N/A Developmental Delay: N/A Children's Services: N/A documented in this encounter [facility] 12-30-2022 Note Department of Matern al Medicine [...] for vaginal bleeding Transport: Yes , from [facility] Prior Hospitalizations: No Estimated Due Date: Estimated [...] [] Low Ris (more content not included)... [facility] 07-21-2021 Miscellaneous Notes Contact letter sent informing patient to contact office if she desires an appointment Patient returned message,returned patients call 3:47 pm Voicemail left 2:38 pm [id number] Patient seen in ER, please offer ER follow up visit documented in this encounter [facility] Diagnosis Supervision of other high risk pregnancies, third trimester documented in this encounter [facility] Diagnosis Vaginal bleeding- Primary Other specified noninflammatory disorder of vagina documented in this encounter [employer] Summary Purpose Family History No Family History [...] or prosecute any alcohol or drug abuse patient[facility] the event this information is protected by the Federal Confidentiality of Alcohol and Drug Abuse Patient Records regulations: The Federal rules restrict any use of the information to criminally investigate or prosecute any alcohol or drug abuse patient.[facility] Reason for Visit (unrecogniz ed section and content) Reason Comments Vaginal Bleeding - Fall INFORMATION SOURCE (unrecogn ized section and content) DATE CREATED AUTHOR AUTHOR'S ORGANIZ ATION 01/08/2023 [facility] DATE CREATED AUTHOR AUTHOR'S ORGANIZ ATION 02/11/2023 [facility] Care Teams (unrecognized sec tion and content) [...] BE BASED ON THE PRIMARY CLINICAL RECORDS. [employer] [facility]. provides no warranty or guarantee of the accuracy or completeness of information in this document.
[2023-03-03] MEDS: LACTATED RINGERS 500 ML 999 ML IV (21:30)
[2023-03-03] MEDS: Lactated Ringers 1,000 ML 50 ML IV (21:30)
--- NOTE | 2023-03-03 21:44 | HP.PCM.OB_ITS ---
HPI - General General Date of Admission: 03/03/23 HPI Narrative TIKI ZAVALETA, is a 22 F at 37.6 weeks gestation who presents in active labor. Patient had very limited care during the . Was recently being seen by BRYAN CONTRERAS due to concern of vascular ring. Delivery plan was to be at [facility] in [place]. Maternal Data Information BEATRIZ Calculator Estimated Delivery Date Method Current WG Current Estimate 03/18/23 Manual 37w 6d PFSH PFSH Medical History no medical history Home Medications vits no.130-ferrous fum 27 mg iron-folic acid 800 mcg tablet ( Vitamin) 1 tab PO DAILY 11/28/22 [History Last Taken 03/01/23] ferrous sulfate 325 mg (65 mg iron) tablet (Feosol) 325 mg PO DAILY 03/01/23 [History Last Taken 03/01/23] Allergy/AdvReac Type Severity Reaction Status Date / Time No Known Allergies Allergy Verified 03/01/23 20:44 Social History Smoking Status: Former smoker History Elective abortions Hx Para 2 Spontaneous abortions Hx # Term Pregnancies Ectopic pregnancies Hx # Pregnancies Multiple births # of living children ROS Eyes Eyes: Denies blurry vision, change in vision or spots in vision ENT HEENT: Denies dizziness or headache(s) Cardiovascular Cardiovascular: Denies abdominal pain, chest pain or dyspnea Respiratory/Chest Respiratory/Chest: Denies cough, dyspnea, shortness of breath at rest or shortness of breath with exertion Gastrointestinal Gastrointestinal: Denies abdominal pain, diarrhea or vomiting Genitourinary Genitourinary: Denies change in urinary stream, difficulty urinating or dysuria Musculoskeletal Musculoskeletal: Reports none Integumentary Integumentary: Denies rash Neurologic Neurologic: Denies dizziness, headache(s), memory loss or weakness Psychiatric Psychiatric: Reports none Vital Signs Vital Signs Vital Signs: Weight Weight: 183 lb Body Mass Index (BMI) 28.6 Physical Exam Const alert, oriented x3 and no apparent distress General Appearance: cooperative Orientation / Consciousness: awake Exam Limitations: no limitations HEENT normocephalic Head and Scalp: normal to inspection Eyes General Eye: normal appearance of both eyes Neck full ROM and no lymphadenopathy Lymph Lymphatic: no lymphadenopathy noted Chest inspection of chest normal Resp normal respiratory effort, normal air movement and clear to auscultation bilaterally Effort and Inspection: able to speak in complete sentences and symmetric chest movement Cardio regular rate and regular rhythm GI normal to inspection, nondistended, normoactive bowel sounds Back/Spine normal ROM Extremity full ROM and no calf tenderness Skin no rashes or lesions noted General Skin Exam: no breakdown Neuro oriented x3 and CN's II-XII intact bilaterally Psych mental status grossly normal and thought process normal Labs Labs Labs: Blood Type A POSITIVE Antibody Screen NEGATIVE Hct 31.3 % (37-47) L Hgb 9.8 g/dL (12.0-15.0) L Syphilis Total Ab Non-reactive Assessment & Plan (1) 37 weeks gestation of : (2) Active labor at term: (3) Late care affecting : (4) cardiac anomaly affecting , antepartum: (5) GBS screening not performed: PLAN: Plan CE /-1 Admit to labor and delivery Director Software Development present and pulling records from [facility] system Start IV Routine labs GBS unknown- start PCN 5 million units IV now Epidural when indicated Anticipate Dr. Dejesus notified of admission, patient history and plan of care- collaborating physician
--- OUTSIDE RECORDS SUMMARY | 2023-03-03 21:46 | XMS RPT_ITS | CCD ---
Author Name Unknown Address [address] [place] [address] Organization [facility] Care Team Providers Care Education Program Specialist Name Role Phone Unavailable Primary Care Provider [...] 97.81 [degF] Javon Lakhani DO Work Phone: [employer] 12-31-2022 12:04-0500 Diastolic blood pressure 73 mm[Hg] Javon Lesvia DO Work Phone: [employer] 12-31-2022 12:04-0500 Heart rate 99 /min Javon Lesvia DO Work Phone: [employer] 12-31-2022 12:04-0500 Respiratory rate 16 /min Javon Lesvia [facility] Work Phone: [employer] 12-31-2022 12:04-0500 SaO2% (BldA) [Mass fraction] 98 % Javon Lakhani DO Work Phone: [employer] 12-31-2022 12:04-0500 Systolic blood pressure 122 mm[Hg] Javon Lakhani DO Work Phone: [employer] 12-30-2022 18:17-0500 Body height 167.6 cm Javon Lakhani DO Work Phone: [employer] 12-30-2022 18:17-0500 Body mass index (BMI) [Ratio] 26.79 kg/m2 Javon Lakhani DO Work Phone: [employer] 12-30-2022 18:17-0500 Body weight 75.3 kg Javon Lakhani DO Work Phone: [facility] Encounters Encounter Date Encounter Type Care Provider Facility Start: 01-10-2023 End: 01-10-2023 ambulatory [facility] Start: 12-30-2022 End: 12-31-2022 Evaluation and management of inpatient JAVON LAKHANI [facility] Start: 12-30-2022 End: 12-31-2022 Evaluation and management of inpatient Javon Lakhani DO Work Phone: [facility] Start: 12-29-2022 End: 12-30-2022 ambulatory [facility] Start: 12-29-2022 End: 12-29-2022 ambulatory SELF REFERRED [facility] Start: 12-29-2022 End: 12-29-2022 Subsequent hospital visit by physician Geneva Pope 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 [place], [place] [id number] Esvin Cuellar MD [address] [place], [place] [id number] [phone] Josué Vázquez DO [address] [facility] [address] [place], [place] [id number] [facility] Start: 01-24-2023 End: 01-24-2023 Patient encounter procedure 01/24/2023 1:30 PM EST Office Visit [facility] [address], [address] [address] Nirmala [place] [address] [facility] [place] Start: 01-24-2023 End: 01-24-2023 Professional / ancillary services management 01/24/2023 1:00 PM EST Ancillary Procedure Visit [facility] [place] [address] [place] [address] [facility] Start: 01-10-2023 End: 01-10-2023 Patient encounter procedure 01/10/2023 10:00 AM EST Office Visit [facility] [place] [address], [address] [place] [address] Nirmala [place] [address] [facility] [place] Start: 10-15-2022 FLU (#1) FLU (#1) [facility] Start: 2019 Microscopic observat ion [Identifier] in Cervix by Cyto stain Pap Smear [facility] Start: 2019 Screening for malign ant neoplasm of cervix Pap Smear [facility] Start: 2017 DTaP/Tdap/Td Vaccine s (1 - Tdap) DTaP/Tdap/Td Vaccines (1 - Tdap) [facility] Start: 2016 Hepatitis C screening Hepatitis C Sc reening [facility] Start: 2014 MenB (1 of 2 - MenB 2-Dose Series Bexsero) MenB (1 of 2 - MenB 2-Dose Series Bexsero) [facility] Start: 2010 Depression Screening Depression Scre ening [facility] Start: 2009 HPV (1 - 2-dose series) HPV (1 - 2-d ose series) [facility] Start: 2009 HPV Vaccines (1 - 2- dose series) HPV Vaccines (1 - 2-dose series) [facility] Start: 2005 Tetanus Diphtheria a nd Pertussis Vaccines (1 - Tdap) Tetanus Diphtheria and Pertussis Vaccines (1 - Tdap) [facility] Start: 1999 MMR (1 of 1 - Standa rd series) MMR (1 of 1 - Standard series) [facility] Start: 1999 MMR Vaccines (1 of 1 - Standard series) MMR Vaccines (1 of 1 - Standard series) [facility] Start: 1999 Varicella (1 of 2 - 2-dose childhood series) Varicella (1 of 2 - 2-dose childhood series) [facility] Start: 1999 Varicella vaccination Varicell a Vaccines (1 of 2 - 2-dose childhood series) [facility] Start: 1998 COVID-19 (#1) COVID-19 (#1) [facility] Start: 1998 COVID-19 Vaccine (#1) COVID-19 Vacci ne (#1) [facility] Start: 1998 Hepatitis B (1 of 3 - 3-dose series) Hepatitis B (1 of 3 - 3-dose series) [facility] Start: 1998 Hepatitis B Vaccines (1 of 3 - 3-dose series) Hepatitis B Vaccines (1 of 3 - 3-dose series) [facility] Start: 1998 HIV screening HIV Screening [facility] End: 12-31-2022 Bacteria identified in Urine by Culture [facility] Work Phone: Immunizations Immunization Date Immunization Notes Care Provider Fa rositaty 12-31-2022 Influenza, injectabl e, Madin Melissa Canine Kidney, preservative free, quadrivalent Javon Lesvia DO Work Phone: [facility] Payers Date Payer Category Payer Unknown [id number] 1998 Unknown [id number] 1998 Unknown [id number] 1998 Unknown [id number] 1998 Unknown [id number] Unknown SANDRA SANDRA/FHN [id number] Effective for all dates [phone] [address] [place] [address] [id number] Unknown [id number] Social History Date Type Detail Facility Tobacco smoking status WIIS Tobacco smoking consumption unknown [facility] Start: 1998 Sex Assigned At Not on file [facility] Start: 12-29-2022 Tobacco smoking status WIIS Ex-smoker [facility] End: 02-14-2017 History of tobacco use Current smoker [facility] End: 02-14-2017 History of tobacco use Cigarette Smoker [facility] History of tobacco use Tobacco Use Types Packs/Day Years Used Date Smoking Tobacco: Former Cigarettes Quit: 2018 Vaping Smokeless Tobacco: Never [facility] Start: 12-29-2022 End: 12-30-2022 Tobacco use and exposure Smokeless tobacco non-user [facility] Start: 12-29-2022 Alcohol intake Ex-drinker (finding) [facility] Start: 12-29-2022 End: 12-30-2022 History of Social function [facility] Start: 12-29-2022 End: 12-30-2022 Tobacco use panel [facility] Start: 12-29-2022 Tobacco Comment Patient is vap ing every day [facility] Start: 12-29-2022 Alcohol Comment not during [facility] Start: 06-25-2022 [facility] Start: 12-30-2022 Tobacco smoking status NHIS Never smoked tobacco [facility] Start: 12-30-2022 Alcohol intake Lifetime non-d wan (finding) [facility] Within the last year , have you been afraid of your partner or ex-partner? No [facility] Clinical Notes 07-21-2021 to 12-31-2022 Radha Aguirre RN - 12/31/2022 4:00 PM ESTRadha Aguirre RN - 12/31/2022 4:00 PM ESTDischarge Sarah Cruz DO - 12/31/2022 6:37 AM EST Note Date & Type Note Facility 12-31-2022 Nurse Note Patient given discharge instructions with standard labor precautions. Pt states no questions or concerns, left ambulatory with spouse. [facility] 12-31-2022 Nurse Note Patient given discharge instructions with standard labor precautions. Pt states no questions or concerns, left ambulatory with spouse. documented in this encounter [facility] 12-31-2022 Hospital Discharg e instructions Radha Aguirre RN - 12/31/2022 3:50 PM EST Call your DrFollow up appointment with your doctor/continuous improvement facilitator - Keep next scheduled appointment Activity - Normal Activity Call your doctor/continuous improvement facilitator if you have: - leaking fluid - [...] changing your position. documented in this encounter [facility] 12-31-2022 Note Attestation signed by Guillermina [...] of [facility] Department of Obstetrics and Gynecology [facility] Discharge Summary Admission on 12/30/2022 6:01 PM [...] maternal trauma Follow up appointment with your doctor/continuous improvement facilitator - Keep next scheduled appointment Activity - Normal Activity Call your doctor/continuous improvement facilitator if you have: - leaking fluid - vaginal bleeding - regular contractions: More than 6 contractions in one hour - decreased movement - worsening abdominal (belly) pain - headache, blurry vision, increased swelling, upper abdominal pain Jasmin Aldana DO on 12/31/2022 at 1:32 PM [facility] 12-31-2022 History of Presen t illness Narrative [...] months - Unable to get OB in [facility] as OB - Patient dated by [...] today: 45 minutes. documented in this encounter [facility] 12-31-2022 Note Formatting of this n ote might be different from the original. Date: 12/31/2022 Name: Elyse Petty : 2000 [facility] Information- [place] Patient Information Primary Caregiver: Self Accompanied by/Relationship: S/O;Family Marital Status: Single Support System: SO/Family Zoroastrian/Cultural Factors: none Activities of Daily Living Communication: [...] place to sleep or slept in a intermediate (including now)? No Transportation Needs Has the [...] a fall. 4 Para 2. Transport from [place]. [facility] to care. Discharge Plan Home or Community Resources: PNU Admission folder given upon admission to unit Equipment: N/A Education Given: PNU admit folder and see Education Tab Additional Information: N/A Mental Health Services: N/A Developmental Delay: N/A Children's Services: N/A [facility] 12-31-2022 Miscellaneous Notes Formattin g of this note might be different from the original. Date: 12/31/2022 Name: Elyse Petty : 2000 [facility] Patient Information Primary Caregiver: Self Accompanied by/Relationship: S/O;Family Marital Status: Single Support System: SO/Family Zoroastrian/Cultural Factors: none Activities of Daily Living Communication: [...] place to sleep or slept in a intermediate (including now)? No Transportation Needs Has the [...] a fall. 4 Para 2. Transport from [place]. Late to care. Discharge Plan Home or Community Resources: PNU Admission folder given upon admission to unit Equipment: N/A Education Given: PNU admit folder and see Education Tab Additional Information: N/A Mental Health Services: N/A Developmental Delay: N/A Children's Services: N/A documented in this encounter [facility] 12-30-2022 Note Department of Matern al [...] for vaginal bleeding Transport: Yes , from [place] Prior Hospitalizations: No Estimated Due Date: Estimated [...] [] Low Ris (more content not included)... [facility] 07-21-2021 Miscellaneous Notes Contact letter sent informing patient to contact office if she desires an appointment Patient returned message,returned patients call 3:47 pm Voicemail left 2:38 pm [phone] Patient seen in ER, please offer ER follow up visit documented in this encounter [facility] Diagnosis Supervision of other high risk pregnancies, third trimester documented in this encounter [facility] Diagnosis Vaginal bleeding- Primary Other specified noninflammatory disorder of vagina documented in this encounter [employer] Summary Purpose Family History No Family History [...] or prosecute any alcohol or drug abuse patient.[facility] the event this information is protected by the Federal Confidentiality of Alcohol and Drug Abuse Patient Records regulations: The Federal rules restrict any use of the information to criminally investigate or prosecute any alcohol or drug abuse patient.[facility] Reason for Visit (unrecogniz ed section and content) Reason Comments Vaginal Bleeding - Fall INFORMATION SOURCE (unrecogn ized section and content) DATE CREATED AUTHOR AUTHOR'S ORGANIZ ATION 01/08/2023 [facility] DATE CREATED AUTHOR AUTHOR'S ORGANIZ ATION 02/11/2023 [facility] Care Teams (unrecognized sec tion and [...] BE BASED ON THE PRIMARY CLINICAL RECORDS. [employer] [facility]. provides no warranty or guarantee of the accuracy or completeness of information in this document.
[2023-03-03 21:50] LABS: Absolute Lymphocyte Count 2.33 X10^3/uL (0.83-4.51); Absolute Neutrophil Count 13.3 X10^3/uL (2.0-7.7); Basophil# 0.06 X10^3/uL; Basophil% 0.4 % (0-1); Eosinophil# 0.08 X10^3/uL; Eosinophils% 0.5 % (0-5); Hematocrit 31.3 % (37-47); Hemoglobin 9.8 g/dL (12.0-15.0); Lymphocyte # 2.33 X10^3/ul (0.83-4.51); Mean Corp Hgb Conc 31.3 g/dL (32-36); Mean Corpuscular Volume 79.8 fL (81-99); Mean Platelet Vol. 10.9 fl (6.2-12.0); Monocyte# 0.76 X10^3/uL; Monocyte% 4.6 % (0-10); NRBC Flagged by Analyzer 0 % (0-5); Neutrophil # 13.31 X10^3/uL (2.7-7.7); Neutrophil % 80.1 % (47-70); Platelet Count 287 K/mm3 (150-450); RBC Distribution Width CV 13.9 % (11.6-14.6); RBC Distribution Width SD 39.4 fl (35.1-43.9); Red Blood Count 3.92 M/mm3 (4.2-5.4); White Blood Count 16.6 K/mm3 (4.4-11.0)
[2023-03-03] MEDS: Oxytocin 10 UNITS/ML Vial IM (22:19)
[2023-03-03] MEDS: Oxytocin 15 Units/NS 250ml 15 UNITS/250 ML IV.SOLN 999 UNITS IV (22:20)
[2023-03-03] MEDS: Methylergonovine 0.2 MG/ML Ampul 0.200000000000000011 MG IM (22:28)
[2023-03-03 22:29] LABS: Syphilis Antibodies Non-reactive
--- NOTE | 2023-03-03 22:50 | OP.PCM_ITS ---
Assessment & Plan (1) (spontaneous vaginal delivery): (2) Precipitous delivery: (3) GBS screening not performed: (4) cardiac anomaly affecting , antepartum: (5) Late care affecting : Maternal Data Information BEATRIZ Calculator Estimated Delivery Date Method Current WG Current Estimate 03/18/23 Manual 37w 6d Doctor Who Attended Delivery: Sarah Shaffer Vaginal Delivery Maternal Presentation Maternal Presentation: Active Labor Maternal Presentation: Patient presented in spontaneous, active labor Operative Information Date of Procedure: 03/03/23 Pre-Operative Diagnosis: Term gestation, Spontaneous onset of labor, poor care Post-Operative Diagnosis: , live female infant Surgery / Procedure Performed: Spontaneous Vaginal Delivery Type of Anesthesia: None Estimated Blood Loss: 400 Time of Delivery: 22:17 Findings Description of Procedure: Patient quickly progressed to complete dilation. Spontaneous rupture of membranes for clear fluid. Patient bearing down with contractions. With maternal effort, head delivered. Double loose nuchal cord reduced. Without traction, anterior shoulder delivered followed by remainder of body. Vigorous female placed on maternal abdomen. Cord clamped and cut and infant handed off to nursing/respiratory/farm equipment mechanic in room. Pitocin IM and IV given for active management of the third stage of labor. Placenta delivered spontaneously and intact. Cord gasses collected and sent. Uterus boggy and Methergine IM x1 given. Vaginal sweep completed and several clots expressed out. Straight cath completed. With massage, uterus firmed up. Vagina and perineum intact. Hemostasis obtained. EBL 400 cc. APGARS 8/9. Inf[facility] to be transported to [facility] due to possible cardiac issue. Dr. Dejesus notified of delivery. Presentation: Vertex and KATHRYN Amniotic Membrane Rupture Type: Spontaneous Time of Membrane Rupture: 2205 Amniotic Fluid Description: Clear Placental Delivery Description: Spontaneous Placenta Disposition: Sent with transport team Cord Vessel Description: 3 Vessels Cord Entanglement: Around neck x 2, loose Nuchal Cord Compression: Without compression Cord Gases: ABG and VBG Infant A Gender: Female (1 minute): 8 (5 minute): 9 Delayed Cord Clamping: No Post Vaginal Delivery Medications Given After Delivery: IV Pitocin, IM Pitocin and IM Methergin Episiotomy Description: None Laceration: None Complication Complications: None
--- NOTE | 2023-03-03 22:51 | PCM.NUR.HP ---
Objective Objective Data: 03/03/23 21:59 03/03/23 21:59 03/03/23 22:00 Temperature Temperature Source Pulse Rate 82 Blood Pressure 135/67 H BP Systolic 135 BP Diastolic 67 Pulse Ox 99 03/03/23 22:00 03/03/23 22:39 03/03/23 22:39 Temperature Temperature Source Pulse Rate 75 82 Blood Pressure 131/83 H BP Systolic 131 BP Diastolic 83 Pulse Ox 03/03/23 22:40 03/03/23 22:40 03/03/23 22:40 Temperature Temperature Source Temporal Pulse Rate 79 Blood Pressure 133/83 H BP Systolic 133 BP Diastolic 83 Pulse Ox 03/03/23 22:40 03/03/23 22:39 03/03/23 22:39 Temperature 98.7 F 98.1 F Temperature Source Temporal Pulse Rate Blood Pressure BP Systolic BP Diastolic Pulse Ox Weight: 83.007 kg Vital Signs Temp Pulse BP Pulse Ox 03/03/23 22:39 98.1 F 03/03/23 22:40 98.7 F 03/03/23 22:40 79 03/03/23 22:40 133/83 H 03/03/23 22:39 82 03/03/23 22:39 131/83 H 03/03/23 22:00 75 03/03/23 22:00 135/67 H 03/03/23 21:59 99 03/03/23 21:59 82 Lab tests last 48H 03/03/23 21:25 WBC 16.6 H RBC 3.92 L Hgb 9.8 L Hct 31.3 L MCV 79.8 L MCH 25.0 L MCHC 31.3 L RDW Std Deviation 39.4 RDW Coeff of Geoff 13.9 Plt Count 287 MPV 10.9 Immature Gran % (Auto) 0.400 Neut % (Auto) 80.1 H Lymph % (Auto) 14.0 L [place] % (Auto) 4.6 Eos % (Auto) 0.5 Baso % (Auto) 0.4 Absolute Neuts (auto) 13.3 H Absolute Lymphs (auto) 2.33 Nucleated RBC % 0 Syphilis Total Ab Non-reactive Blood Type A POSITIVE Antibody Screen NEGATIVE Delivery/Maternal Data Labor/Delivery Date of rupture of membranes: 03/03/23 Time of rupture of membranes: 22:10 Vital Signs Vital Signs Vital Signs: 03/03/23 21:59 03/03/23 21:59 03/03/23 22:00 Temperature Temperature Source Pulse Rate 82 Blood Pressure 135/67 H BP Systolic 135 BP Diastolic 67 Pulse Ox 99 03/03/23 22:00 03/03/23 22:39 03/03/23 22:39 Temperature Temperature Source Pulse Rate 75 82 Blood Pressure 131/83 H BP Systolic 131 BP Diastolic 83 Pulse Ox 03/03/23 22:40 03/03/23 22:40 03/03/23 22:40 Temperature Temperature Source Temporal Pulse Rate 79 Blood Pressure 133/83 H BP Systolic 133 BP Diastolic 83 Pulse Ox 03/03/23 22:40 03/03/23 22:39 03/03/23 22:39 Temperature 98.7 F 98.1 F Temperature Source Temporal Pulse Rate Blood Pressure BP Systolic BP Diastolic Pulse Ox Weight Weight: 83.007 kg Body Mass Index (BMI) 28.6 General Weight: 83.007 kg
[2023-03-03] MEDS: Oxytocin 15 Units/NS 250ml 15 UNITS/250 ML IV.SOLN 83 UNITS IV (23:05)
[2023-03-04 00:07] VITALS: BP 126/68; PULSE 73
[2023-03-04 00:22] VITALS: BP 135/72; PULSE 73
[2023-03-04 00:23] VITALS: TEMP 36.8
[2023-03-04 03:54] VITALS: BP 119/65; PULSE 77; RESP 16; TEMP 36.8; O2SAT 99
--- NOTE | 2023-03-04 07:19 | PCM.DC.SUM ---
Providers Date of Admission: 03/03/23 Primary Care Physician: No Primary Care Phys Reason For Visit: VAGINAL DELIVERY Diagnosis Discharge Diagnosis (1) (spontaneous vaginal delivery): Status: Acute Code(s): O80 - Encounter for full-term uncomplicated delivery (2) Precipitous delivery: Status: Acute Code(s): O62.3 - Precipitate labor (3) GBS screening not performed: Status: Acute (4) cardiac anomaly affecting , antepartum: Status: Acute Code(s): O35.BXX0 - Maternal care for other (suspected) abnormality and damage, cardiac anomalies, not applicable or unspecified (5) Late care affecting : Status: Acute Code(s): O09.30 - Supervision of with insufficient care, unspecified trimester Plan PPD1 Routine care Pain controlled Desires discharge to go to [facility] where is currently Medications at Discharge Home Medications vits no.130-ferrous fum 27 mg iron-folic acid 800 mcg tablet ( Vitamin) 1 tab PO DAILY 11/28/22 ferrous sulfate 325 mg (65 mg iron) tablet (Feosol) 325 mg PO DAILY 03/01/23 Hospital Course Summary of Care Provided Minutes Spent on Discharge: 15 Hospital Course: Patient had . Hospital course was uneventful. Physical Exam Const alert and no apparent distress General Appearance: cooperative and comfortable Exam Limitations: no limitations HEENT normocephalic Eyes General Eye: normal appearance of both eyes Neck full ROM General: normal visual inspection Chest Chest: symmetrical chest wall rise Resp normal respiratory effort and normal air movement Effort and Inspection: symmetric chest movement Auscultation: clear to auscultation bilaterally Cardio regular rate and regular rhythm GI normal to inspection, nondistended, normoactive bowel sounds Back/Spine normal ROM Extremity full ROM and no calf tenderness General Extremity: normal exam except as noted Skin no rashes or lesions noted Neuro CN's II-XII intact bilaterally Psych mental status grossly normal Weight / BMI Weight Weight: 183 lb Body Mass Index (BMI) 28.6 ABG / Lab / Microbiology Data 03/03/23 21:25 Laboratory: Laboratory Results - last 24 hr 03/03/23 21:25: WBC 16.6 H, RBC 3.92 L, Hgb 9.8 L, Hct 31.3 L, MCV 79.8 L, MCH 25.0 L, MCHC 31.3 L, RDW Std Deviation 39.4, RDW Coeff of Geoff 13.9, Plt Count 287, MPV 10.9, Immature Gran % (Auto) 0.400, Neut % (Auto) 80.1 H, Lymph % (Auto) 14.0 L, [place] % (Auto) 4.6, Eos % (Auto) 0.5, Baso % (Auto) 0.4, Absolute Neuts (auto) 13.3 H, Absolute Lymphs (auto) 2.33, Nucleated RBC % 0, Syphilis Total Ab Non-reactive, Blood Type A POSITIVE, Antibody Screen NEGATIVE D/C Instructions Discharge Diet: No restrictions May resume sexual activity in: 6-8 weeks Weight Bearing Status: Weight bearing as tolerated Call your doctor if you observe: Fever of 101 or Higher, Inability to urinate, Using more than 1 pad per hour, Shortness of breath, Chest pain, Calf discomfort and Uncontrolled pain Please Follow Up With: Brigid Valencia CNM When: 2 weeks virtual visit/ 6 weeks in office Meaningful Use Info Meaningful Use Diagnoses (Choose all that apply): None applicable Discharge Plan Admission Admit Date/Time: 03/03/23 21:34 Primary Reason for Your Visit: Labor and Delivery Attending Provider: Brigid Valencia Primary Care Provider: Care Physician,No Primary Discharge Orders/Prescriptions Prescriptions: No Action Vitamin 27 mg iron- 800 mcg tablet 1 tab PO DAILY ferrous sulfate [Feosol] 325 mg (65 mg iron) tablet 325 mg PO DAILY Referrals / Follow Up: Brigid Valencia CNM [Med Staff - Adv Practice Prof] - Care Physician,No Primary [Primary Care Provider] - Disposition Disposition (needs filled in before D/C Order can be placed): Home, Self Care
[2023-03-04 07:51] VITALS: BP 116/70; PULSE 80; RESP 16; TEMP 36.9
--- NOTE | 2023-03-04 11:10 | NURSING ---
Pt. left this morning after seeing social work to see up at [facility]. IBCLC did not get a chance to see patient before discharge. Phone call attempted at 1110am, left voicemail and phone number for patient to call back.
--- NOTE | 2023-03-04 13:28 | CASEMGMT ---
Social Work Assessment Labor and Delivery Unit Patient Address: [facility] [place] [address] Phone number: [phone] Date of Referral: 03/03/23 Time of Referral:? [id number] Referred By: Brigid Valencia Date of Intervention: ??03/04/23 Time of Intervention:? 929 Reason for Referral:? hzx of alcohol abuse for her and her mom Elissa completed chart review and acknowledges social work consult due to maternal history of alcoholism for MOB and maternal grandma. Sw presented to bedside and introduced self to mother of baby (MOB- Elyse) and father of baby (FOB- Jonnathan). Sw explained sw role during hospitalization and completed psychosocial assessment. History obtained from: medical records, MOB and FOB Household composition: MOB states that she and FOB met while both were living in [place]. MOB states that her father had an accident that requires him to need assistance, so she and FOB and SIMON's 2 year old son came to [place] 6/7 months ago to help her dad. MOB states that they were supposed to be moving to [place] on Tuesday to stay with FONestor's parents until they found housing of their own. MOB states that now that baby has been born they will not be able to move to [place] until she is ready for discharge. - MOB states that while they are still in [place] they have stable and secure housing. And will not be in jeopardy of losing their housing in [place] since they are not able to be there as soon as they had anticipated. - SIMON has two older children: Isidro (5 years old) in custody of his father and they reside in [place]. Anurag (2 years old) resides with SIMON and Jonnathan. - VIOLETA has one older son, Jonnathan Roman who resides with his mom in [place]. Patient's parent/guardian status:? ?MOB states that she and FONestor met on social media about a year ago while they were both living in [place]. This is first baby that they have together. Each parent has another child with a different partner. No concerns at this time regarding domestic violence or intimate partner violence. Medical History: ?SIMON is 22 year old female who is 3, para 2- now 3 following labor and delivery of . SIMON received very limited care during . Ultrasound done at 28 weeks gestation where SIMON was encouraged to follow up with Maternal Medicine. SIMON states that she did have several appointments with [facility], however when she was supposed to go back childcare prevented her from being able to attend. And then by the time she got around to getting another appointment scheduled following the holidays, the baby was born. - Sw explained to SIMON the importance of routine appointments for herself, her 2 year old son and now baby. Sw stated that given the diagnosis that baby has it would have been beneficial for her to have more routine appointments with MFM, as it was recommended for her to be seen 2x a month until 36 weeks, and then weekly appointments until delivery. 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 Educational Status:? SIMON completed high school and VIOLETA obtained his GED. 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 SIMON was previously working at [employer] and then she fell and wasn't able to work anymore. Supplies:?? MOB states that they have obtained all necessary baby supplies for baby, including: car seat, safe sleep space, clothes, diapers and wipes. Childcare/Caregiver(s):?SIMON will be the primary caregiver to baby along with VIOLETA when he is not at work. Transportation:??Parents have reliable transportation. Programs/Agencies Involved: ?SIMON states that she previously attempted to get insurance through [employer] however they told her that she was over income when she was working at [employer]. SIMON states that her insurance now is [employer]. SIMON states that when she had private insurance through her employer it did not cover all of the medical expenses that she had, and she now has a bill at [facility] for $5,000. ? - Sw encouraged SIMON to talk to social work at [facility] who may be able to assist her in financial assistance for her [facility] bill. And can also ensure that baby is connected to insurance that will provide coverage for hospitalization/ transport, etc. SIMON expressed understanding. Children Services/Legal Issues:???SIMON states that when she was with her second son, she needed to come to [place] to help care for her father who had a life threatening accident. When she came to [place] her older son's father took her to court for permanent custody because he accused her of abandonment of their son. MOB stated that she does not believe that she abandoned him, because she told people that her leave to [place] was only temporary. - MOB states that there was court involvement at that time, but not Children's Services - No issues or concerns warranting referral to [facility] at this time. Behavioral Health Issues: ??Mental Health History: FOB and MOB deny mental health history. ??? Substance Use History:??Although consult for sw indicates that MOB has history of alcohol abuse, MOB denies this when asked. MOB denies substance use prior to and during . Family History:?:Parents deny addiction/ substance use history within their families, as well as significant mental health diagnoses. ? Drug Screens: No urine screens observed in chart review. ?? Family/Social Stressors:?Parents deny current stressors at this time, however there are several life changes that are happening all at one time. Parents were staying in [place] for short time to help with caring for MOB father. Baby was born earlier than expected as parents were to be moving to [place] on Tuesday to reside with FOB family. 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 Given current circumstances parents still in positive and upbeat spirits. Support Systems: MOB states that FOB and FOB's family are her/ their biggest supports at this time. Depression/Shaken Baby/Safe Sleeping:? Sw educated parents on signs and symptoms of baby blues and depression and anxiety. Parents expressed understanding. Sw educated parents on shaken baby prevention and ABCs of safe sleep. Parents expressed understanding. ASSESSMENT:? MOB admitted, but cleared for discharge following labor and delivery of . Bath baby required transfer to 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 Parents were engaged during assessment and answered questions. Social concerns remain regarding MOB only attending two appointments and only one MFM appointment after learning of baby's vascular anomaly. Parents with limited supports locally. Parents intention is to move to [place] when baby is medically ready for dc from NICU. PLAN:? MOB to be discharged today and will go to NICU to be with who requires admission there. Elissa provided information to NICU neonatal social worker, Corinne Claudio. ?No other services requested or indicated. Florencio Herrera, PUMP OPERATOR [employer], SHIPFITTER HELPER
== END 2023-03-04 09:45 | disposition home or self-care (01) | DRG 560 ==
LOC: WPOUT 21:43 → WP 21:44
PROVIDERS: Admitting Provider Advanced Practice Midwife; Referring Provider Advanced Practice Midwife; Visit Provider Advanced Practice Midwife
DX: O35.8XX0 Maternal care for other (suspected) fetal abnormality and damage, not applicable or unspecified (principal); Z37.0 Single live birth; N85.8 Other specified noninflammatory disorders of uterus; O42.02 Full-term premature rupture of membranes, onset of labor within 24 hours of rupture; O62.3 Precipitate labor; Z3A.37 37 weeks gestation of pregnancy; O69.81X0 Labor and delivery complicated by cord around neck, without compression, not applicable or unspecified; O99.892 Other specified diseases and conditions complicating childbirth; Z87.891 Personal history of nicotine dependence
CPT/HCPCS: 59025; 59050; 85025; 86780; 86850; 86900; 86901; 99221; J7120; G0378